=== PATIENT | male | born 1960 | race Caucasian/White ===

== ENCOUNTER 2020-10-01 12:49 | Emergency (ER) | payer OTHER ==
[~2020-10-01] VITALS: Ht 175.3 cm; Wt 80.7 kg
[2020-10-01 12:52] VITALS: BP_SYST 145
--- NOTE | 2020-10-01 12:55 | NUR ---
Dr Garrett evaluating patient in the triage room
--- NOTE | 2020-10-01 13:24 | NUR ---
Note xander in ED - 10/02/20 at 0716 by [email or web address] Patient to bed 01 to shamir for evaluation. Side rails up.
--- NOTE | 2020-10-01 13:24 | NUR ---
Pt left without been seen
== END 2020-10-01 13:34 | disposition left against medical advice (07) ==
LOC: SED 12:49
DX: R20.0 Anesthesia of skin (principal); Z53.21 Procedure and treatment not carried out due to patient leaving prior to being seen by health care provider